=== PATIENT | female | born 1995 | race Caucasian/White ===

== ENCOUNTER 2017-12-05 22:49 | Emergency (ER) | payer OTHER ==
[2017-12-05 23:05] VITALS: TEMP 97.9
--- NOTE | 2017-12-06 00:01 | C.PDOC ---
History Of Present Illness 22yo female, presents to ER with complaint of rash to her axilla for the past week. She states she had stretch garcía on her abdomen 2-3 weeks and states her axilla "rash" is similar to the one on her abdomen. She also reports tingling sensation to her hand and finger but denies any numbness, tingling or weakness now. She has no other complaints. Time Seen by Provider: 12/05/17 23:23 Chief Complaint (Nursing): Allergic Reaction History Per: Patient History/Exam Limitations: no limitations Onset/Duration Of Symptoms: Days Current Symptoms Are (Timing): Still Present Past Medical History Reviewed: Historical Data, Nursing Documentation, Vital Signs Vital Signs: Last Vital Signs Temp 97.9 F 12/06/17 00:06 Pulse 80 12/06/17 00:06 Resp 14 12/06/17 00:06 BP 120/80 12/06/17 00:06 Pulse Ox 98 12/06/17 20:58 - Medical History PMH: Arthritis, HTN, Chronic Kidney Disease Surgical History: No Surg Hx Family History: States: Unknown Family Hx - Social History Hx Tobacco Use: No Hx Alcohol Use: No Hx Substance Use: No - Immunization History Hx Tetanus Toxoid Vaccination: Yes Hx Influenza Vaccination: Yes Hx Pneumococcal Vaccination: Yes Review Of Systems Except As Marked, All Systems Reviewed And Found Negative. Constitutional: Negative for: Fever, Chills Skin: Positive for: Rash (to axilla) Physical Exam - Physical Exam Appears: Non-toxic, No Acute Distress Skin: Warm, Dry, Other (diffuse striae to mid abdomen- lateral aspects and axilla area bilaterally; no erythema, warmth or fluctuance noted. no signs of abscess or cellulitis noted.) Head: Normacephalic Eye(s): bilateral: Normal Inspection Neck: Normal ROM, Supple Chest: Symmetrical Cardiovascular: Rhythm Regular Respiratory: Normal Breath Sounds Neurological/Psych: Oriented x3, Normal Speech, Normal Cognition, Normal Motor ( 5/5 motor strength all extremities), Normal Sensation ED Course And Treatment O2 Sat by Pulse Oximetry: 98 (RA) Pulse Ox Interpretation: Normal Progress Note: Patient with benign exam and requires no emergent medical care. Advised to follow up with PCP in 2-3 days. Stable for discharge home. 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 - Scribe Statement The provider has reviewed the documentation as recorded by the Scribe (Cayla Sheffield) Provider Attestation: All medical record entries made by the Scribe were at my direction and personally dictated by me. I have reviewed the chart and agree that the record accurately reflects my personal performance of the history, physical exam, medical decision making, and the department course for this patient. I have also personally directed, reviewed, and agree with the discharge instructions and disposition.
[2017-12-06 00:07] VITALS: BP 120/80; PULSE 80; RESP 14
[2017-12-06 20:56] VITALS: O2SAT 98
== END 2017-12-06 00:07 | disposition home or self-care (01) ==
LOC: C.ER 22:49
DX: L90.6 Striae atrophicae (principal); I12.9 Hypertensive chronic kidney disease with stage 1 through stage 4 chronic kidney disease, or unspecified chronic kidney disease; N18.9 Chronic kidney disease, unspecified

== ENCOUNTER 2018-01-06 04:20 | Emergency (ER) | payer OTHER ==
[2018-01-06 04:44] VITALS: RESP 20
[2018-01-06] MEDS ORDERED: Sodium Chloride 0.9% 500 ML IV ONE (05:06)
--- NOTE | 2018-01-06 05:54 | C.PDOC ---
History Of Present Illness 22 year old female presents to the ED c/o several episodes of watery stools associated with abdominal cramping since last night. Patient reports she feels nauseous while in the ED. Patient denies food association, fever, chills, bloody stool, back pain, weakness, numbness. Time Seen by Provider: 01/06/18 04:56 Chief Complaint (Nursing): Abdominal Pain History Per: Patient History/Exam Limitations: no limitations Onset/Duration Of Symptoms: Hrs Current Symptoms Are (Timing): Still Present Location Of Pain/Discomfort: Diffuse Radiation Of Pain To:: None Quality Of Discomfort: Cramping Associated Symptoms: Nausea, Diarrhea Exacerbating Factors: None Alleviating Factors: None Last Bowel Movement: Today Recent travel outside of the [place]: No Additional History Per: Patient Abnormal Vaginal Bleeding: No Past Medical History Reviewed: Historical Data, Nursing Documentation, Vital Signs Vital Signs: Last Vital Signs Temp 97.6 F 01/06/18 06:42 Pulse 86 01/06/18 06:42 Resp 20 01/06/18 06:42 BP 122/72 01/06/18 06:42 Pulse Ox 98 01/06/18 07:20 - Medical History PMH: Arthritis, HTN, Chronic Kidney Disease Surgical History: No Surg Hx Family History: States: Unknown Family Hx - Social History Hx Tobacco Use: No Hx Alcohol Use: No Hx Substance Use: No - Immunization History Hx Tetanus Toxoid Vaccination: Yes Hx Influenza Vaccination: Yes Hx Pneumococcal Vaccination: Yes Review Of Systems Constitutional: Negative for: Fever, Chills Cardiovascular: Negative for: Chest Pain Respiratory: Negative for: Shortness of Breath Gastrointestinal: Positive for: Nausea, Diarrhea, Other (abd cramping) Musculoskeletal: Negative for: Back Pain Skin: Negative for: Rash Neurological: Negative for: Dizziness Physical Exam - Physical Exam Appears: Non-toxic, No Acute Distress Skin: Normal Color, Warm, Dry Head: Atraumatic, Normacephalic Eye(s): bilateral: Normal Inspection Nose: No Discharge Oral Mucosa: Moist Neck: Normal ROM, Supple Chest: Symmetrical Cardiovascular: Rhythm Regular, No Murmur Respiratory: Normal Breath Sounds, No Rales, No Rhonchi, No Wheezing Gastrointestinal/Abdominal: Bowel Sounds (hyperactive), Soft, No Tenderness, No Guarding, No Rebound Back: No CVA Tenderness Extremity: Normal ROM, No Tenderness, No Swelling Neurological/Psych: Oriented x3 Gait: Steady ED Course And Treatment - Laboratory Results Result Diagrams: 01/06/18 05:06 01/06/18 05:06 O2 Sat by Pulse Oximetry: 98 (ON RA) Pulse Ox Interpretation: Normal Progress Note: Plan: - IV fluids. - Immodium PO. - Zofran 4 mg IV. - Labs. Pt reports improved sx, tolerated PO and appears well, abd now soft and NT. Pt will follow up with PMD , return instructions explained and pt understand and agreed to plan Reevaluation Time: 06:50 Reassessment Condition: Improved Disposition - Disposition Referrals: [facility] [Outside] Disposition: HOME/ ROUTINE Disposition Time: 07:16 Condition: STABLE Prescriptions: Loperamide [Loperamide HCl] 2 mg PO QID #10 cap Ondansetron ODT [Zofran ODT] 1 odt PO BID PRN #6 odt PRN Reason: Nausea/Vomiting Instructions: Gastroenteritis (DC) Forms: Accompanied To ED By:, [employer] (Syriac), Work Excuse - Clinical Impression Clinical Impression: Gastroenteritis - 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 - Scribe Statement The provider has reviewed the documentation as recorded by the Scribe Alvaro Gomez All medical record entries made by the Rituibe were at my direction and personally dictated by me. I have reviewed the chart and agree that the record accurately reflects my personal performance of the history, physical exam, medical decision making, and the department course for this patient. I have also personally directed, reviewed, and agree with the discharge instructions and disposition.
[2018-01-06 06:28] LABS: ALB/GLOB RATIO 1.2 (1.0-2.1); ALBUMIN 4.2 g/dL (3.5-5.0); ALT/SGPT 33 U/L (9-52); AST/SGOT 43 U/L (14-36); BLOOD UREA NITROGEN 14 mg/dL (7-17); CALCIUM 9.2 mg/dl (8.6-10.4); GFR AFRICAN-AMERICAN > 60; GFR NON-AFRICAN AMERICAN > 60; LIPASE 42 U/L (23-300)
[2018-01-06 06:42] VITALS: BP 122/72; PULSE 86; TEMP 97.6
[2018-01-06 07:00] LABS: HCG,QUALITATIVE URINE NEGATIVE (NEGATIVE)
[2018-01-06 07:17] VITALS: O2SAT 98
[2018-01-06 07:24] LABS: BASO # 0.1 K/uL (0.0-0.2); BASO % 0.6 % (0.0-2.0); EOS # 0.1 K/uL (0.0-0.7); EOS % 0.9 % (0.0-4.0); HEMOGLOBIN 15.2 g/dL (11.0-16.0); LYMPH # 2.3 K/uL (1.0-4.3); LYMPH % 23.7 % (20.0-40.0); MEAN CELL VOLUME 89.7 fL (81.0-99.0); MEAN CORPUSCULAR HGB CONC 34.6 g/dL (33.0-37.0); MEAN PLATELET VOLUME 8.5 fL (7.2-11.7); MONO # 1.4 K/uL (0.0-0.8); MONO % 14.2 % (0.0-10.0); NEUT % 60.6 % (50.0-75.0); NRBC % 0.2 % (0.0-2.0); RBC 4.9 Mil/uL (3.80-5.20); RED CELL DISTRIBUTION WIDTH 13.5 % (11.5-14.5); WHITE BLOOD COUNT 9.8 K/uL (4.8-10.8)
[2018-01-06 07:47] LABS: SQUAMOUS EPITHIAL 2 /hpf (0-5); URINE BILIRUBIN NEGATIVE (NEGATIVE); URINE BLOOD NEGATIVE (NEGATIVE); URINE CLARITY Hazy (Clear); URINE COLOR Yellow (YELLOW); URINE GLUCOSE (UA) NORMAL (Normal); URINE HYALINE CAST 0-2 /lpf (0-2); URINE LEUKOCYTE ESTERASE NEG Leu/uL (Negative); URINE PROTEIN 3+ mg/dL (NEGATIVE); URINE UROBILINOGEN NORMAL mg/dL (0.2-1.0)
== END 2018-01-06 07:41 | disposition home or self-care (01) ==
LOC: C.ER 04:20
DX: K52.9 Noninfective gastroenteritis and colitis, unspecified (principal)
CPT/HCPCS: 80053; 81001; 83690; 84703; 85025; 96374; 99284; J2405; J7040

== ENCOUNTER 2018-01-20 20:38 | Emergency (ER) | payer OTHER ==
[2018-01-20 20:51] VITALS: BP 134/89; PULSE 96; RESP 20; TEMP 98.4; O2SAT 100
--- NOTE | 2018-01-20 21:51 | C.PDOC ---
History Of Present Illness 22 year old female presents to the ER with a complaint of sore throat, right ear pain, and dry cough. Patient has not taken anything at home for her symptoms and denies fever or SOB. Time Seen by Provider: 01/20/18 20:59 Chief Complaint (Nursing): ENT Problem History Per: Patient History/Exam Limitations: None Onset/Duration Of Symptoms: Days Current Symptoms Are (Timing): Still Present Past Medical History Reviewed: Historical Data, Nursing Documentation, Vital Signs Vital Signs: Last Vital Signs Temp 98.4 F 01/20/18 20:47 Pulse 96 H 01/20/18 20:47 Resp 20 01/20/18 20:47 BP 134/89 01/20/18 20:47 Pulse Ox 100 01/21/18 00:45 - Medical History PMH: Arthritis, HTN, Chronic Kidney Disease Family History: States: Unknown Family Hx - Social History Hx Tobacco Use: No Hx Alcohol Use: No Hx Substance Use: No - Immunization History Hx Tetanus Toxoid Vaccination: Yes Hx Influenza Vaccination: Yes Hx Pneumococcal Vaccination: Yes Review Of Systems Constitutional: Negative for: Fever, Chills ENT: Positive for: Ear Pain, Throat Pain Respiratory: Positive for: Cough. Negative for: Shortness of Breath Physical Exam - Physical Exam Appears: Non-toxic Skin: Normal Color, Warm, Dry Head: Atraumatic, Normacephalic Eye(s): bilateral: Normal Inspection Ear(s): Left: Normal, Right: TM Erythema (with mild bulging, no effusion), Other (Erythematous canal) Nose: Normal Oral Mucosa: Moist Throat: Normal, No Erythema, No Exudate Neck: Normal, Supple Chest: Symmetrical, No Tenderness Cardiovascular: Rhythm Regular Respiratory: Normal Breath Sounds, No Rales, No Rhonchi, No Wheezing Neurological/Psych: Oriented x3, Normal Speech ED Course And Treatment O2 Sat by Pulse Oximetry: 100 (Room air) Pulse Ox Interpretation: Normal Progress Note: Tylenol administered. Patient is resting comfortably in no acute distress, vitals are stable, will discharge home with instructions to follow up with PMD or return if symptoms worsen. Disposition Counseled Patient/Family Regarding: Diagnosis, Need For Followup, Rx Given - Disposition Referrals: [facility] [Outside] Disposition: HOME/ ROUTINE Disposition Time: 21:45 Condition: STABLE Additional Instructions: Take meds as directed Gargle with Chloraseptic Return to ER if worse Prescriptions: Amoxicillin/Clavulanate [Augmentin 500 MG-125 MG] 1 tab PO TID #21 tab Cetirizine HCl [Zyrtec] 10 mg PO DAILY #20 capsule Promethazine DM [Phenergan DM Syrup] 5 ml PO Q6 #100 ml Instructions: Ear Infections (Otitis Media) (DC) Forms: [employer] (Hebrew) - Clinical Impression Clinical Impression: Otitis media, Upper respiratory infection - 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 - Scribe Statement The provider has reviewed the documentation as recorded by the Scribjamarcus Carnes All medical record entries made by the Rituibjamarcus were at my direction and personally dictated by me. I have reviewed the chart and agree that the record accurately reflects my personal performance of the history, physical exam, medical decision making, and the department course for this patient. I have also personally directed, reviewed, and agree with the discharge instructions and disposition.
== END 2018-01-20 22:08 | disposition home or self-care (01) ==
LOC: C.ER 20:38
DX: H66.91 Otitis media, unspecified, right ear (principal); J06.9 Acute upper respiratory infection, unspecified

== ENCOUNTER 2018-05-15 22:51 | Emergency (ER) | payer OTHER ==
[2018-05-15 23:30] VITALS: BP 121/78
--- NOTE | 2018-05-16 00:55 | C.PDOC ---
History Of Present Illness 23 year old female patient presents to the ER with c/o nasal congestion with sore throat. Patient states she has been experiencing it since yesterday. Nasal congestion and sore throat is progressively worse today. Patient denies cough, fever, and did not take medication for her nasal congestion or sore throat. Time Seen by Provider: 05/15/18 23:52 Chief Complaint (Nursing): ENT Problem History Per: Patient History/Exam Limitations: no limitations Onset/Duration Of Symptoms: Days (x2 ) Current Symptoms Are (Timing): Worse Location Of Pain: Throat, Sinus/es Associated Symptoms: Sore Throat. denies: Fever, Cough Past Medical History Reviewed: Historical Data, Nursing Documentation, Vital Signs Vital Signs: Last Vital Signs Temp 98.2 F 05/16/18 01:00 Pulse 82 05/16/18 01:00 Resp 20 05/16/18 01:00 BP 121/78 05/15/18 23:28 Pulse Ox 97 05/16/18 02:33 - Medical History PMH: Arthritis, HTN, Chronic Kidney Disease Family History: States: Unknown Family Hx - Social History Hx Tobacco Use: No Hx Alcohol Use: No Hx Substance Use: No - Immunization History Hx Tetanus Toxoid Vaccination: Yes Hx Influenza Vaccination: Yes Hx Pneumococcal Vaccination: Yes Review Of Systems Except As Marked, All Systems Reviewed And Found Negative. Constitutional: Negative for: Fever ENT: Positive for: Nose Congestion, Throat Pain Respiratory: Negative for: Cough Physical Exam - Physical Exam Appears: Non-toxic, No Acute Distress Skin: Normal Color, Warm, Dry Head: Atraumatic Eye(s): bilateral: Normal Inspection Ear(s): Bilateral: Normal Nose: Discharge (clear) Oral Mucosa: Moist Throat: No Exudate, Other (hyperemic pharynx; no tonsil enlargment; no lymphadenopathy) Neck: Normal ROM, Supple Respiratory: Normal Breath Sounds, No Wheezing Neurological/Psych: Oriented x3, Normal Speech Gait: Steady ED Course And Treatment O2 Sat by Pulse Oximetry: 97 (RA) Pulse Ox Interpretation: Normal Progress Note: Impression: nasal congestion and sore throat. Plans: -- strep throat test. Reassess: strep throat test is negative. Patient is resting comfortably. Patient is comfortable being sent home wit symptomatic treatment . 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 - Scribe Statement The provider has reviewed the documentation as recorded by the Lauren Connors Do All medical record entries made by the Rituibe were at my direction and personally dictated by me. I have reviewed the chart and agree that the record accurately reflects my personal performance of the history, physical exam, medical decision making, and the department course for this patient. I have also personally directed, reviewed, and agree with the discharge instructions and disposition.
[2018-05-16 01:43] VITALS: PULSE 82; RESP 20; TEMP 98.2
[2018-05-16 02:31] VITALS: O2SAT 97
== END 2018-05-16 01:00 | disposition home or self-care (01) ==
LOC: C.ER 22:51
DX: J30.9 Allergic rhinitis, unspecified (principal)